=== PATIENT | female | born 1995 | race Caucasian/White ===

== ENCOUNTER → 2017-11-11 16:37 | Outpatient (CLI) | payer BC, OTHER, SELFPAY ==
--- NOTE | 2017-11-11 16:39 | DI.RAD.S_ITS ---
PROCEDURE: XR RIBS LT MIN 3V W CXR1V INDICATIONS: Contact injury with shortness of breath TECHNIQUE: 2 views of the left ribs were acquired, along with a single view chest. COMPARISON: None. FINDINGS: Surgical changes and devices: None. Bones and chest wall: No fractures or dislocations. No suspicious bony lesions. Overlying soft tissues appear unremarkable. Lungs and pleura: No pleural effusions or pneumothorax. Lungs appear clear. Mediastinum: Mediastinal contours appear normal. Heart size is normal. IMPRESSION: No trauma found. No pneumothorax identified. Dictated by: Wesley Birmingham M.D. on 11/11/2017 at 17:13 Approved by: Wesley Birmingham M.D. on 11/11/2017 at 17:13
== END ==
PROVIDERS: Visit Provider Physician Assistant
DX: R07.81 Pleurodynia (principal); R06.02 Shortness of breath
CPT/HCPCS: 71101

== ENCOUNTER → 2018-03-11 10:03 | Outpatient (CLI) | payer OTHER, SELFPAY ==
[2018-03-11 12:02] LABS: Urine N gonorrhoeae NOT DETECTED
[2018-03-11 12:21] LABS: Urine Chlamydia NOT DETECTED
== END ==
PROVIDERS: Visit Provider Obstetrics & Gynecology
DX: Z20.2 Contact with and (suspected) exposure to infections with a predominantly sexual mode of transmission (principal)
CPT/HCPCS: 87491; 87591

== ENCOUNTER 2018-04-14 12:08 | Emergency (ER) | payer OTHER, SELFPAY ==
[2018-04-14 12:13] VITALS: BP 112/59; PULSE 84; RESP 16; TEMP 36.1; O2SAT 99
[2018-04-14 13:08] LABS: Bacteria Urine Occasional (0-1); Culture Indicated Urine Specimen Cultured; RBC Urine 1-5/HPF (0-5/HPF); Squamous Epithelial Cell Urine 0-1 /HPF; WBC Urine 1-5/HPF (0-5/HPF)
--- NOTE | 2018-04-14 14:37 | ED_ITS ---
HPI - Female Genitourinary General Chief complaint: Urogenital-Female Stated complaint: Thinks UTI/vaginitis Time Seen by Provider: 04/14/18 14:17 Source: patient Mode of arrival: ambulatory Limitations: no limitations History of Present Illness HPI Narrative: Patient is a 23-year-old female who presents with painful frequent burning urination which started today. 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 She said that she has been treating multiple times with a variety of medications he has had multiple pelvic exam she has been tested for gonorrhea chlamydia multiple times. She is on sure if the BP is causing her painful or frequent urination. This is something new today for her. His she has some mild lower abdominal discomfort no fever no flank pain. She continues to have vaginal discharge and odor some pruritus as well. The symptoms are not new for her today. However the dysuria is new. MD Complaint: dysuria and vaginal discharge Onset (ago): day(s) (1) Related Data Previous Rx's Medication Instructions Recorded norethindrone acetate 1 mg-ethinyl 1 tab PO DAILY #63 tab 03/16/18 estradiol 20 mcg tablet clindamycin phosphate 1 suppositor VAG DAILY 7 Days #7 04/14/18 each fluconazole [Diflucan] 200 mg PO DAILY #2 tab 04/14/18 sulfamethoxazole-trimethoprim 1 tab PO BID 5 Days #10 tab 04/14/18 [Bactrim DS] Allergies Allergy/AdvReac Type Severity Reaction Status Date / Time No Known Allergies Allergy Uncoded 03/16/18 11:47 Review of Systems Review of Systems All systems reviewed & are unremarkable except as noted in HPI and below Constitutional Denies chills, Denies fever(s), Denies lethargy and Denies weakness Cardiovascular Denies chest pain, Denies irregular heart rhythm, Denies lightheadedness, Denies palpitations, Denies dyspnea, Denies dyspnea on exertion and Denies orthopnea Respiratory Denies cough, Denies dyspnea, Denies dyspnea on exertion and Denies wheezing Gastrointestinal Gastrointestinal: Reports abdominal pain, Denies diarrhea and Denies nausea Genitourinary Reports as per HPI Musculoskeletal Denies back pain, Denies muscle weakness, Denies numbness and Denies tingling Integumentary/Breasts Denies pruritus, Denies erythema, Denies rash and Denies wounds Neurologic Denies numbness, Denies tingling and Denies weakness Endocrine Denies palpitations Allergic/Immunologic Denies wheezing PFSH Medical History Bacterial vaginosis (Chronic) Social History Smoking Status: Current every day smoker Exam Initial Vital Signs Initial Vital Signs: Vital Signs Temperature 96.9 F L 04/14/18 12:13 Pulse Rate 84 04/14/18 12:13 Respiratory Rate 16 04/14/18 12:13 Blood Pressure 112/59 L 04/14/18 12:13 Pulse Oximetry 99 04/14/18 12:13 GENERAL: Well-appearing, young female well-nourished and in no acute distress. HEENT: Head atraumatic,EOMI, pupils reactive, neck is supple CARDIOVASCULAR: Regular rate and rhythm without murmurs, rubs or gallops. RESPIRATORY: Breath sounds equal bilaterally, no wheezes rales or rhonchi. ABDOMEN: Soft, mild lower abdominal pain and discomfort no guarding or rebound : No CVA tenderness EXTREMITIES: Normal range of motion, no clubbing or edema. Neurovascularly intact NEUROLOGICAL: Alert and oriented x4.Normal gait and speech. SKIN: Warm, dry, no laceration, no petechiae, no rashes or lesions. Course Orders Ordered: ED Orders 04/14/18 12:40 Urine Culture Stat Urine Microscopic Stat Vital Signs - 8 hr 04/14/18 12:13 04/14/18 14:43 Temperature 96.9 F L Pulse Rate 84 64 Respiratory Rate 16 15 Blood Pressure 112/59 L 114/67 Pulse Oximetry 99 100 MDM - Female Genitourinary Differential Diagnosis Likely urinary tract infection, bacterial vaginosis, trichomoniasis, vaginitis and cystitis Lab Data Attestation: I reviewed the patient's lab results. Lab Results 04/14/18 Range/Units 12:40 Urine RBC 1-5/hpf (0-5/HPF) Urine WBC 1-5/hpf (0-5/HPF) Ur Squamous Epith Cells 0-1 /hpf Urine Bacteria Occasional (0-1) (None) Ur Culture Indicated? Specimen cultured Micro UA Comment Not Reportable Point of Care Testing Test Results Negative Urine Dip Bedside Urine Glucose Negative Bedside Urine Bilirubin - Negative Bedside Urine Ketone - Negative Urine Specific [place] 1.010 Bedside Urine Occult Blood +++ Bedside Urine pH 7.0 Bedside Urine Protein - Negative Bedside Urine Urobilinogen - Negative Bedside Urine Nitrite + Positive Bedside Urine Leukocytes - Negative Esterase MDM Narrative Medical decision making narrative: I offered pelvic exam for patient. However she states she bed many. After to test her urine for gonorrhea chlamydia she said she has been test multiple times. This time she does have nitrate in her urine will treat her for a UTI. She says she still feels like she has BV. She has been on metronidazole tablets and had intravaginal gel as well. She has been on Tinidazole as well. She is willing to try clindamycin intravaginal capsules. And is requesting Diflucan. At this time she appears nontoxic or septic. She is refusing pelvic and further testing. She has signs and symptoms of dysuria consistent with UTI. At this time treat pre you TI. Discharge Plan Departure Patient Disposition: Home Clinical Impression: UTI (urinary tract infection), Vaginitis Discharge Date/Time: 04/14/18 14:44 Interventions: ED Discharge Assessment Last Done: 04/14/18 14:43 Instructions: Bacterial Vaginosis, DI for Urinary Tract Infection (UTI) Activity Restrictions/Additional Instructions: *You have been diagnosed with UTI, vaginitis *What to do: May recommend specialist for chronic ongoing bacteria vaginosis *Continue to take medications as directed: Fax to [facility] 1. Bactrim 1 tab twice a day for 5 days for UTI 2. Clindamycin intravaginally daily for 7 days for the BV 3. DIFLUCAN ONCE FOR YEAST INFECTION *Follow up with your primary care provider in 2-3 days *Return to ER if you should have increasing pain, fever, increased pain or any new, worsening or concerning symptoms Prescriptions: New sulfamethoxazole-trimethoprim [Bactrim DS] 800-160 mg tablet 1 tab PO BID 5 Days Qty: 10 RF: 0 fluconazole [Diflucan] 200 mg tablet 200 mg PO DAILY Qty: 2 RF: 0 clindamycin phosphate 100 mg suppository 1 suppositor VAG DAILY 7 Days Qty: 7 RF: 0 No Action norethindrone ac-eth estradiol [June05/29 (21)] 1-20 mg-mcg tablet 1 tab PO DAILY Qty: 63 RF: 3 Stand Alone Forms: Work/School Restrictions
[2018-04-14 14:43] VITALS: BP 114/67; PULSE 64; RESP 15; O2SAT 100
== END 2018-04-14 14:44 | disposition home or self-care (01) ==
PROVIDERS: Emergency Provider Emergency Medicine
DX: N39.0 Urinary tract infection, site not specified (principal); N76.0 Acute vaginitis
CPT/HCPCS: 81003; 81015; 81025; 87086; 99282; 99283

== ENCOUNTER → 2021-01-25 15:05 | Outpatient (CLI) | payer OTHER, SELFPAY ==
[2021-01-25 15:44] LABS: COVID19 -Nasal RAPID Negative (Negative)
== END ==
PROVIDERS: Visit Provider Nurse Practitioner Family
DX: R51.9 Headache, unspecified (principal); R11.0 Nausea; R05 Cough
CPT/HCPCS: 87635

== ENCOUNTER → 2021-04-08 19:06 | Outpatient (CLI) | payer OTHER, SELFPAY ==
[2021-04-08 19:33] LABS: COVID19 -Nasal RAPID Negative (Negative)
[2021-04-08 21:07] LABS: Urine N gonorrhoeae NOT DETECTED
[2021-04-08 21:10] LABS: Urine Chlamydia NOT DETECTED
== END ==
PROVIDERS: Referring Provider Physician Assistant; Visit Provider Physician Assistant
DX: Z20.822 Contact with and (suspected) exposure to COVID-19 (principal); Z13.9 Encounter for screening, unspecified; N89.8 Other specified noninflammatory disorders of vagina
CPT/HCPCS: 87210; 87491; 87591; 87635